=== PATIENT | female | born 2000 | race Caucasian/White ===

== ENCOUNTER 2020-10-14 19:59 | Emergency (ER) | payer OTHER ==
[2020-10-14 21:42] LABS: HEMOGLOBIN 12.2 gm/dl (12.3-15.3); RED BLOOD COUNT 3.98 M/UL (4.00-5.10); WHITE BLOOD COUNT 11.7 K/UL (4.5-11.0)
[2020-10-14 22:00] LABS: BUN/CREATININE RATIO 31 (0-10)
== END 2020-10-15 01:57 | disposition home or self-care (01) ==
LOC: ER1 19:59
PROVIDERS: Physician Assistant
DX: R07.9 Chest pain, unspecified (principal); K21.9 Gastro-esophageal reflux disease without esophagitis; Z86.16 Personal history of COVID-19
CPT/HCPCS: 71045; 80053; 82550; 82553; 83874; 83880; 84484; 84703; 85025; 85379; 85610; 85730; 93005; 99285; Q9967

== ENCOUNTER → 2020-10-18 | Outpatient (CLI) | payer OTHER ==
[2020-10-18 14:16] LABS: HEMOGLOBIN 12.3 gm/dl (12.3-15.3); RED BLOOD COUNT 3.93 M/UL (4.00-5.10); WHITE BLOOD COUNT 10.3 K/UL (4.5-11.0)
== END ==
LOC: LAB 13:33
PROVIDERS: Internal Medicine
DX: R07.9 Chest pain, unspecified (principal); R06.02 Shortness of breath
CPT/HCPCS: 36415; 84439; 84443; 85025; 85379; 85652; 86140